=== PATIENT | female | born 1995 | race Caucasian/White ===

== ENCOUNTER 2021-11-26 16:38 | Emergency (ER) | payer OTHER, SELFPAY ==
[2021-11-26 17:00] VITALS: BP 130/76; PULSE 84; RESP 14; TEMP 36.3; O2SAT 98; BMI 22.6
== END 2021-11-26 18:32 | disposition left against medical advice (07) ==
PROVIDERS: Emergency Provider Emergency Medicine; PCP Internal Medicine
CPT/HCPCS: 99281

== ENCOUNTER 2022-04-29 12:49 | Emergency (ER) | payer OTHER, SELFPAY ==
[2022-04-29 12:54] VITALS: BP 163/89; PULSE 79; RESP 15; TEMP 36.3; O2SAT 98; BMI 22.6
--- NOTE | 2022-04-29 12:57 | DI.RAD.S_ITS ---
PROCEDURE: XR CHEST 1V INDICATIONS: chest pain TECHNIQUE: One view of the chest was acquired. COMPARISON: None. FINDINGS: Surgical changes and devices: None. Lungs and pleura: Lungs are clear. No pleural effusions or pneumothorax. Mediastinum: Mediastinal contours appear normal. Heart size is normal. Bones and chest wall: No suspicious bony lesions. Overlying soft tissues appear unremarkable. IMPRESSION: No acute cardiopulmonary disease. Dictated by: Elidia Kingston M.D. on 04/29/2022 at 13:27 Approved by: Elidia Kingston M.D. on 04/29/2022 at 13:28
[2022-04-29 13:24] LABS: COVID19 -Nasal RAPID Negative (Negative)
[2022-04-29 13:26] LABS: Prothrombin Time 11.4 SECONDS (10.1-12.7)
[2022-04-29 13:28] LABS: Add Manual Diff / Slide Review NO; Basophils Absolute Auto 0 /uL (0-100); Basophils Percent Auto 0.5 % (0-2); Eosinophils Absolute Auto 100 /uL (0-450); Eosinophils Percent Auto 0.9 % (2-4); Hematocrit 39.4 % (36-46); Hemoglobin 13.4 g/dL (12.0-16.0); Lymphocytes Absolute Auto 1800 /uL (1100-4500); Lymphocytes Percent Auto 25.1 % (25-40); Mean Corpuscular HGB Conc 34.1 % (30-36); Mean Corpuscular Hemoglobin 31.8 PG (26-34); Mean Corpuscular Volume 93.4 fL (80-100); Monocytes Absolute Auto 400 /uL (0-900); Monocytes Percent Auto 6.1 % (3-14); Neutrophils Absolute Auto 4800 /uL (1500-7000); Neutrophils Percent Auto 67.4 % (50-75); PTT Partial Thromboplastin Tim 29 SECONDS (26-36); Platelet Count 245 X10^3/uL (150-400); Red Blood Cell Count 4.21 X10^6/uL (4.0-5.2); Red Cell Distribution Width 12.7 % (11.6-14.8); White Blood Cell Count 7.1 X10^3/uL (4.5-11.0)
[2022-04-29 13:32] LABS: Alanine Aminotransferase 17 IU/L (<35); Albumin 4.5 g/dL (3.5-5.0); Albumin Globulin Ratio 1.3 (1.0-2.8); Alkaline Phosphatase 43 U/L (38-126); Aspartate Aminotransferase 18 IU/L (14-36); BUN Creatinine Ratio 25.4 (6-22); Bilirubin Total 0.4 mg/dL (0.2-1.3); Blood Urea Nitrogen 16 mg/dL (7-17); Calcium 9.3 mg/dL (8.4-10.2); Carbon Dioxide 29 mmol/L (22-32); Chloride 101 mmol/L (98-107); Creatine Kinase 78 U/L (30-135); Estimated Glomerular Filt Rate > 60 mL/min (>60); Globulin 3.4 g/dL (1.7-4.1); Glucose 98 mg/dL (70-100); HEMOLYSIS 22 (0-50); Lipase 123 U/L (23-300); Potassium 4.1 mmol/L (3.4-5.1); Sodium 137 mmol/L (137-145); Total Protein 7.9 g/dL (6.3-8.2)
[2022-04-29 13:44] LABS: Troponin I < 0.012 ng/mL (0.01-0.034)
== END 2022-04-29 16:24 | disposition left against medical advice (07) ==
PROVIDERS: Emergency Provider Emergency Medicine; PCP Internal Medicine
DX: R07.9 Chest pain, unspecified (principal); R06.02 Shortness of breath; Z20.822 Contact with and (suspected) exposure to COVID-19
CPT/HCPCS: 71045; 80053; 82550; 83690; 83735; 84484; 85025; 85610; 85730; 87635; 93005; 99281; C9803

== ENCOUNTER 2024-01-24 16:50 | Emergency (ER) | payer OTHER, SELFPAY ==
[2024-01-24 16:55] VITALS: BP 139/84; PULSE 69; PULSE 70; RESP 16; TEMP 37; O2SAT 100; BMI 20.9
[2024-01-24 17:00] VITALS: BP 133/90
--- NOTE | 2024-01-24 17:05 | ED_ITS ---
HPI - General Adult General Chief complaint: Abdominal Pain Stated complaint: lower abd px, nausea, headache Time Seen by Provider: 01/24/24 16:51 Source: patient Mode of arrival: Ambulatory History of Present Illness HPI narrative: 28-year-old female. No prior abdominal surgeries. Here for evaluation of approximately 1 week of worsening left-sided abdominal pain. Now having nausea and a headache. She initially thought that maybe it was GI gas. She has been passing gas. She was also been having bowel movements that have been somewhat loose. No urinary symptoms. No vaginal bleeding. She is also having a headache. Related Data Allergies Allergy/AdvReac Type Severity Reaction Status Date / Time No Known Drug Allergies Allergy Verified 01/24/24 16:57 Review of Systems Review of Systems ROS Unobtainable: All systems reviewed & are unremarkable except as noted in HPI and below Patient History Social History Smoking Status: Current every day smoker Smoking Status: Current every day smoker tobacco type: vaping alcohol intake frequency: a few times a week Substance Use Type: does not use Exam Initial Vital Signs Initial Vital Signs: Vital Signs Temperature 98.6 F 01/24/24 16:55 Pulse Rate 70 01/24/24 16:55 Respiratory Rate 16 01/24/24 16:55 Blood Pressure 139/84 01/24/24 16:55 Pulse Oximetry 100 01/24/24 16:55 Oxygen Delivery Method Room Air 01/24/24 16:55 Const General: cooperative, comfortable and No ill appearing HENMT Head: normal to inspection and normocephalic Resp Effort & Inspection: normal respiratory effort Auscultation: clear to auscultation bilaterally Cardio Rate: regular rate Rhythm: regular rhythm GI Inspection: normal to inspection and non-distended Palpation: soft and No firm Back/Spine/Pelvis Back: No CVA tenderness Skin General: no rashes or lesions noted Neuro General: patient alert, patient awake and moves all extremities Extrem General: capillary refill normal Course Orders Ordered: ED Orders 01/24/24 17:00 Complete Blood Count AUTO DIFF Stat Comprehensive Metabolic Panel Stat Lipase Stat Test Serum,Qual Stat 01/24/24 17:09 CT abdomen pelvis w con Stat Discontinued Medications Acetaminophen (Ofirmev) 1,000 mg in 100 mls @ 400 mls/hr IV NOW ONE Stop: 01/24/24 17:23 Last Infusion: 01/24/24 17:38 Dose: Infused Documented By: Admin: 01/24/24 17:22 Dose: 400 mls/hr Documented By: TC Ondansetron HCl (Ondansetron 4 Mg/2 Ml Inj) 4 mg IV NOW ONE Stop: 01/24/24 16:52 Last Admin: 01/24/24 17:07 Dose: 4 mg Documented By: DAVID Vital Signs Vital signs: Vital Signs - 8 hr 01/24/24 16:55 Temperature 98.6 F Pulse Rate 70 Respiratory Rate 16 Blood Pressure 139/84 Pulse Oximetry 100 Oxygen Delivery Method Room Air Medical Decision Making Lab Data Lab results reviewed: Yes I reviewed the patient's lab results. 01/24/24 17:00 01/24/24 17:00 Labs: Lab Results 01/24/24 Range/Units 17:00 WBC 9.3 (4.5-11.0) X10^3/uL RBC 4.15 (4.0-5.2) X10^6/uL Hgb 13.5 (12.0-16.0) g/dL Hct 40.1 (36-46) % MCV 96.7 (80-100) fL MCH 32.5 (26-34) PG MCHC 33.6 (30-36) % RDW 12.8 (11.6-14.8) % Plt Count 242 (150-400) X10^3/uL Neut % (Auto) 67.8 (50-75) % Lymph % (Auto) 23.3 L (25-40) % [place] % (Auto) 8.0 (3-14) % Eos % (Auto) 0.6 L (2-4) % Baso % (Auto) 0.3 (0-2) % Neut # (Auto) 6300 (1282-2944) /uL Lymph # (Auto) 2200 (9620-8471) /uL [place] # (Auto) 800 (0-900) /uL Eos # (Auto) 100 (0-450) /uL Baso # (Auto) 0 (0-100) /uL Sodium 135 L (137-145) mmol/L Potassium 3.6 (3.4-5.1) mmol/L Chloride 104 (98-107) mmol/L Carbon Dioxide 23 (22-32) mmol/L BUN 11 (7-17) mg/dL Creatinine 0.69 (0.52-1.04) mg/dL Estimated GFR > 60 (>60) mL/min BUN/Creatinine Ratio 15.9 (6-22) Glucose 87 (70-100) mg/dL Calcium 9.2 (8.4-10.2) mg/dL Total Bilirubin 0.5 (0.2-1.3) mg/dL AST 18 (14-36) IU/L ALT 14 (<35) IU/L Alkaline Phosphatase 44 (38-126) U/L Total Protein 7.4 (6.3-8.2) g/dL Albumin 4.8 (3.5-5.0) g/dL Globulin 2.6 (1.7-4.1) g/dL Albumin/Globulin Ratio 1.8 (1.0-2.8) Lipase 101 (23-300) U/L Serum , Qual Negative (Negative) Point of Care Testing Test Results Negative Urine Dip Bedside Urine Glucose Negative Bedside Urine Bilirubin - Negative Bedside Urine Ketone +/- 5 Urine Specific [place] 1.025 Bedside Urine Occult Blood - Negative Bedside Urine pH 6.0 Bedside Urine Protein - Negative Bedside Urine Urobilinogen - Negative Bedside Urine Nitrite - Negative Bedside Urine Leukocytes - Negative Esterase Point of care testing: Point of Care Testing Test Results Negative Urine Dip Bedside Urine Glucose Negative Bedside Urine Bilirubin - Negative Bedside Urine Ketone +/- 5 Urine Specific [place] 1.025 Bedside Urine Occult Blood - Negative Bedside Urine pH 6.0 Bedside Urine Protein - Negative Bedside Urine Urobilinogen - Negative Bedside Urine Nitrite - Negative Bedside Urine Leukocytes - Negative Esterase Imaging Data CT scan - abdomen/pelvis: Radiologist's Impression: PROCEDURE: CT ABDOMEN PELVIS W CON INDICATIONS: Left-sided abdominal pain with nausea TECHNIQUE: After the administration of intravenous contrast, axial sections acquired from the lung bases to the pubic symphysis. Coronal and sagittal reformats were performed. For radiation dose reduction, the following was used: automated exposure control, adjustment of mA and/or kV according to patient size. COMPARISON: None. FINDINGS: Image quality: Diagnostic. Lower Chest: No significant findings. ABDOMEN: Liver: No solid mass. Geographic fatty infiltration of the falciform ligament. Gallbladder: No radiopaque gallstones or wall thickening. Biliary ducts: No biliary dilation. Pancreas: No ductal dilation. Spleen: Size is within normal limits. Adrenal Glands: No adrenal nodules. Kidneys and Ureters: No hydronephrosis. No solid mass. No complex renal cystic lesion which requires follow up. Stomach and Bowel: Normal colonic caliber, without significant wall thickening. Peritoneum: No abnormal intraperitoneal fluid. No free air. Ventral Wall: No significant ventral hernia. Abdominal Nodes: No retroperitoneal or mesenteric adenopathy by size criteria. Vessels: Aorta and inferior vena cava are normal in size. PELVIS: Pelvic Organs: Mildly hypervascular uterus with prominent vascular structures in the adnexa with bilateral mildly enlarged uterine veins. Bladder: No bladder wall thickening, accounting for underdistention. Pelvic Nodes: No enlarged lymph nodes. Miscellaneous: No inguinal hernias are seen. Bones: No aggressive osseous abnormality. Mild degenerative changes at L5-S1 IMPRESSION: 1. No acute intra-abdominal findings. 2. Mild prominence the adnexal vascularity, correlate for signs of pelvic congestive syndrome. 3. Focal fatty infiltration of the liver. MDM Narrative Medical decision making narrative: Patient reports improvement of symptoms after IV Tylenol. CT scan is unremarkable. Labs unremarkable. Unsure the exact etiology of the patient's symptoms but does not appear to be infectious process or surgical process. Is afebrile. No chest pain. No indication for surgical consultation or admission to the hospital. We did discuss the possibility of pelvic congestion syndrome although I do not feel that this is what is causing her pain today. She has a follow-up appointment with her primary doctor on 02/03/2024. She was given return precautions. She expressed understanding and agreement with the plan. Discharge Plan Departure Patient Disposition: Home Clinical Impression: Abdominal pain Instructions: DI for Abdominal Pain-Adult Activity Restrictions/Additional Instructions: Your workup today is very reassuring. The CT scan labs unfortunately did not give us a specific cause of your abdominal pain today. I recommend that you keep your follow-up appointment with your primary doctor. There were some findings on the CT scan today that would be indicative of a process called pelvic congestion syndrome. This is not what is causing your abdominal pain today however I would talk with your primary care doctor about it. Return to the emergency department for new or worsening symptoms. Referrals: Eriberto Bauer MD [Primary Care Provider] - Stand Alone Forms: Patient Portal/API
[2024-01-24] MEDS: ONDANSETRON 4 MG/2 ML INJ IV (17:07)
--- NOTE | 2024-01-24 17:09 | DI.CT.S_ITS ---
PROCEDURE: CT ABDOMEN PELVIS W CON INDICATIONS: Left-sided abdominal pain with nausea TECHNIQUE: After the administration of intravenous contrast, axial sections acquired from the lung bases to the pubic symphysis. Coronal and sagittal reformats were performed. For radiation dose reduction, the following was used: automated exposure control, adjustment of mA and/or kV according to patient size. COMPARISON: None. FINDINGS: Image quality: Diagnostic. Lower Chest: No significant findings. ABDOMEN: Liver: No solid mass. Geographic fatty infiltration of the falciform ligament. Gallbladder: No radiopaque gallstones or wall thickening. Biliary ducts: No biliary dilation. Pancreas: No ductal dilation. Spleen: Size is within normal limits. Adrenal Glands: No adrenal nodules. Kidneys and Ureters: No hydronephrosis. No solid mass. No complex renal cystic lesion which requires follow up. Stomach and Bowel: Normal colonic caliber, without significant wall thickening. Peritoneum: No abnormal intraperitoneal fluid. No free air. Ventral Wall: No significant ventral hernia. Abdominal Nodes: No retroperitoneal or mesenteric adenopathy by size criteria. Vessels: Aorta and inferior vena cava are normal in size. PELVIS: Pelvic Organs: Mildly hypervascular uterus with prominent vascular structures in the adnexa with bilateral mildly enlarged uterine veins. Bladder: No bladder wall thickening, accounting for underdistention. Pelvic Nodes: No enlarged lymph nodes. Miscellaneous: No inguinal hernias are seen. Bones: No aggressive osseous abnormality. Mild degenerative changes at L5-S1 IMPRESSION: 1. No acute intra-abdominal findings. 2. Mild prominence the adnexal vascularity, correlate for signs of pelvic congestive syndrome. 3. Focal fatty infiltration of the liver. Dictated by: Govind Hawley M.D. on 01/24/2024 at 16:36 Approved by: Govind Hawley M.D. on 01/24/2024 at 16:43
[2024-01-24 17:17] LABS: Alanine Aminotransferase 14 IU/L (<35); Albumin 4.8 g/dL (3.5-5.0); Albumin Globulin Ratio 1.8 (1.0-2.8); Alkaline Phosphatase 44 U/L (38-126); Aspartate Aminotransferase 18 IU/L (14-36); BUN Creatinine Ratio 15.9 (6-22); Bilirubin Total 0.5 mg/dL (0.2-1.3); Blood Urea Nitrogen 11 mg/dL (7-17); Calcium 9.2 mg/dL (8.4-10.2); Carbon Dioxide 23 mmol/L (22-32); Chloride 104 mmol/L (98-107); Estimated Glomerular Filt Rate > 60 mL/min (>60); Globulin 2.6 g/dL (1.7-4.1); Glucose 87 mg/dL (70-100); HEMOLYSIS < 15 (0-50); Lipase 101 U/L (23-300); Potassium 3.6 mmol/L (3.4-5.1); Sodium 135 mmol/L (137-145); Total Protein 7.4 g/dL (6.3-8.2)
[2024-01-24 17:18] LABS: Add Manual Diff / Slide Review NO; Basophils Absolute Auto 0 /uL (0-100); Basophils Percent Auto 0.3 % (0-2); Eosinophils Absolute Auto 100 /uL (0-450); Eosinophils Percent Auto 0.6 % (2-4); Hematocrit 40.1 % (36-46); Hemoglobin 13.5 g/dL (12.0-16.0); Lymphocytes Absolute Auto 2200 /uL (1100-4500); Lymphocytes Percent Auto 23.3 % (25-40); Mean Corpuscular HGB Conc 33.6 % (30-36); Mean Corpuscular Hemoglobin 32.5 PG (26-34); Mean Corpuscular Volume 96.7 fL (80-100); Monocytes Absolute Auto 800 /uL (0-900); Neutrophils Absolute Auto 6300 /uL (1500-7000); Neutrophils Percent Auto 67.8 % (50-75); Platelet Count 242 X10^3/uL (150-400); Red Blood Cell Count 4.15 X10^6/uL (4.0-5.2); Red Cell Distribution Width 12.8 % (11.6-14.8); White Blood Cell Count 9.3 X10^3/uL (4.5-11.0)
[2024-01-24] MEDS: ACETAMINOPHEN IV 1,000 MG/100 ML VIAL 400 MG IV (17:22)
[2024-01-24 17:27] LABS: Pregnancy Test Serum,Qual Negative (Negative)
== END 2024-01-24 18:21 | disposition home or self-care (01) ==
PROVIDERS: Emergency Provider Emergency Medicine; PCP Internal Medicine
DX: R10.9 Unspecified abdominal pain (principal); R51.9 Headache, unspecified
CPT/HCPCS: 36415; 74177; 80053; 81003; 81025; 83690; 84703; 85025; 96365; 96375; 99284; J0134; J2405; Q9967

== ENCOUNTER → 2024-02-19 10:03 | Outpatient (CLI) | payer OTHER, SELFPAY ==
--- NOTE | 2024-02-19 10:04 | DI.RAD.S_ITS ---
PROCEDURE: XR HAND RT MIN 3V INDICATIONS: Right-hand weakness TECHNIQUE: 3 views of the hand(s) acquired. COMPARISON: [facility], CR, XR WRIST RT MIN 3V, 02/19/2024, 9:17. FINDINGS: Bones: No fractures or dislocations. Carpal bones are normally aligned. No suspicious bony lesions. Soft tissues: No suspicious soft tissue calcifications. IMPRESSION: Normal hand plain films. Dictated by: Daniel Howard M.D. on 02/19/2024 at 18:07 Approved by: Daniel Howard M.D. on 02/19/2024 at 18:07
--- NOTE | 2024-02-19 10:04 | DI.RAD.S_ITS ---
PROCEDURE: XR WRIST RT MIN 3V INDICATIONS: Right-hand weakness TECHNIQUE: 3 views of the wrist were acquired. COMPARISON: [facility], , XR HAND RT MIN 3V, 02/19/2024, 9:15. FINDINGS: Bones: No fractures or dislocations. No suspicious bony lesions. Soft tissues: No suspicious soft tissue calcifications. IMPRESSION: Wrist plain film study within normal limits. If it would be helpful for clinical management decision making, please consider a dedicated, scheduled wrist MRI for further evaluation (assuming that there is no contraindication). If there is strong clinical concern for a ligamentous abnormality, this should be performed according to the MR arthrogram protocol. Dictated by: Daniel Howard M.D. on 02/19/2024 at 18:07 Approved by: Daniel Howard M.D. on 02/19/2024 at 18:08
== END ==
PROVIDERS: Referring Provider Nurse Practitioner Family; Visit Provider Nurse Practitioner Family
DX: R29.898 Other symptoms and signs involving the musculoskeletal system (principal)
CPT/HCPCS: 73110; 73130

== ENCOUNTER 2024-02-19 17:15 | Emergency (ER) | payer OTHER, SELFPAY ==
[2024-02-19 17:22] VITALS: BP 135/60; PULSE 76; RESP 16; TEMP 35.9; O2SAT 100; BMI 20.9
--- NOTE | 2024-02-19 17:59 | ED.HEATRA ---
HPI - Head Injury <Rupa Leiva PA-C - Last Filed: 02/19/24 18:51> General Chief complaint: Head Injury Stated complaint: injured by ladder Time Seen by Provider: 02/19/24 17:59 Source: patient Mode of arrival: Ambulatory History of Present Illness HPI Narrative: Patient is a very pleasant 28-year-old female that presents to the emergency room department with her best friend, with complaints of nasal trauma associated with having a large 11 ft ladder hit her in the face. Patient was outside, the wind unfortunately blew ladder that struck her in the face. No loss of consciousness. However it did damage and pull on a nose ring that she had in the right nostril. Which caused some pain and discomfort and bleeding. The nasal ring was in place, however the patient was able to get the nasal ring out prior to me seeing her. Currently no nasal bleeding, or nosebleed or epistaxis at this point in time. Patient concerned about possible nasal bone fracture. Also concerned about possible concussion. No loss of consciousness. No treatment prior to being seen here in the emergency room except ice to the nose. No other further complaints. Related Data Previous Rx's Medication Instructions Recorded prednisone 20 mg tablet 40 mg (2 x 20 mg) PO DAILY #6 tabs 02/19/24 Allergies Allergy/AdvReac Type Severity Reaction Status Date / Time cyclobenzaprine Allergy Severe Anaphylaxis Verified 02/19/24 17:25 [From Flexeril] tramadol Allergy Severe Anaphylaxis Verified 02/19/24 17:25 corn AdvReac Intermediate gi upset Verified 02/19/24 17:25 peanut AdvReac Intermediate gi upset Verified 02/19/24 17:25 shrimp AdvReac Intermediate gi upset Verified 02/19/24 17:25 soy AdvReac Intermediate gi upset Verified 02/19/24 17:25 walnut AdvReac Intermediate gi upset Verified 02/19/24 17:25 wheat AdvReac Intermediate gi upset Verified 02/19/24 17:25 Review of Systems <ADELE Tovar Last Filed: 02/19/24 18:51> Review of Systems Narrative: Negative except as above ENT Comments: Nasal injury, nose ring injury. Concerns for possible nasal bone fracture. Patient History <Rupa Leiva PA-C - Last Filed: 02/19/24 18:51> Social History Smoking Status: Current every day smoker Smoking Status: Current every day smoker tobacco type: vaping alcohol intake frequency: a few times a week Substance Use Type: does not use Exam <Rupa Leiva PA-C - Last Filed: 02/19/24 18:51> Initial Vital Signs Initial Vital Signs: Vital Signs Temperature 96.6 F L 02/19/24 17:22 Pulse Rate 76 02/19/24 17:22 Respiratory Rate 16 02/19/24 17:22 Blood Pressure 135/60 02/19/24 17:22 Pulse Oximetry 100 02/19/24 17:22 Oxygen Delivery Method Room Air 02/19/24 17:22 Reviewed Const General: cooperative, healthy appearing, comfortable, well developed, well groomed, No acute distress, No in distress and No anxious HENMT Nose: No external nose normal, nares normal, nasal mucous membranes and turbinates normal, septum normal, No epistaxis and external nose abnormal (Patient has an area on the right lateral nose where she had a nose ring.) HENMT Other: She has been able to remove the nose ring, she has a small laceration associated with a nose ring, 0.3 mm in length. Currently not bleeding. Eyes General: Yes appearance normal, both eyes and all related structures Pupils: PERRL EOM: EOM intact bilaterally Skin Other: 0.3 mm skin tear small laceration to the lateral aspect of the right nostril where the ladder hit her nose ring. The patient was able to remove the nose ring here in the emergency department. Currently no bleeding. Neuro General: patient alert, patient awake, patient oriented x3, oriented and gait normal Cranial Nerves: CN's II-XI intact bilaterally and PERRL Cognition: normal cognition Speech: speech normal Gait: normal gait Extrem Other: Range of motion, strength, pulses, cap refill preserved in the upper and lower extremities Psych Other: Appearance, mental status, speech, movement, mood, affect, attitude, thought process, thought content, judgment are completely intact. <Karuna Whipple DO - Last Filed: 02/20/24 09:29> Initial Vital Signs Initial Vital Signs: Vital Signs Temperature 96.6 F L 02/19/24 17:22 Pulse Rate 76 02/19/24 17:22 Respiratory Rate 16 02/19/24 17:22 Blood Pressure 135/60 02/19/24 17:22 Pulse Oximetry 100 02/19/24 17:22 Oxygen Delivery Method Room Air 02/19/24 17:22 Scores <Rupa Leiva PA-C - Last Filed: 02/19/24 18:51> GCS Citation: 15 Course <Rupa Leiva PA-C - Last Filed: 02/19/24 18:51> Vital Signs Vital signs: Vital Signs - 8 hr 02/19/24 17:22 Temperature 96.6 F L Pulse Rate 76 Respiratory Rate 16 Blood Pressure 135/60 Pulse Oximetry 100 Oxygen Delivery Method Room Air <Karuna Whipple DO - Last Filed: 02/20/24 09:29> Vital Signs Vital signs: Vital Signs - 8 hr 02/19/24 17:22 Temperature 96.6 F L Pulse Rate 76 Respiratory Rate 16 Blood Pressure 135/60 Pulse Oximetry 100 Oxygen Delivery Method Room Air MDM - Head Injury <Rupa Leiva PA-C - Last Filed: 02/19/24 18:51> MDM Narrative Medical decision making narrative: Pleasant 28-year-old female presents to the emergency department after a ladder struck her in the nose, unfortunately ripping the nose ring that she had in the right nares. Did not completely ripped it out the patient was able to remove it here in the emergency department but did pull it and cause a superficial 0.3 mm laceration associated with pulling on the nasal ring. Evaluation of the nose shows that there is no septal hematoma, there was no fracture or bone through the septum. She currently does not have epistaxis. The nose ring has been removed by the patient. Currently no bleeding. Superficial laceration that does not need to be repaired, the patient does not want skin glue she wants the superficial laceration to heal on its own She asked about nasal fracture, exam does not show or indicative of a nasal fracture. There was no obvious deformity, and her nasal exam is negative for any acute findings We discussed a concussion. Signs and symptoms of a concussion. Supportive therapy education, ED precautions. Patient discharged with [id number] supportive therapy ice, Tylenol, ibuprofen for her symptoms. Concussion education Differential diagnosis; facial trauma nasal contusion, superficial laceration to the right nares. Possible concussion. Discharge Plan Departure Patient Disposition: Home Clinical Impression: Contusion of nose, initial encounter Activity Restrictions/Additional Instructions: I would cleaned the area on the right side of her nose that has a nose ring in with either some hydrogen peroxide or a little bit of alcohol to keep it clean Apply take anywhere from 7-10 days for the outside to heal Probably take at least probably 2-3 weeks for the tissue inside to heal If your wanting to repair set area I would probably wait probably 1-2 months before I repairs that area Signs and symptoms of concussion headache, dizziness, weakness, nausea, just feeling off for awhile unstable this is different from person to person I would go home and rest tonight I would not go home and drink alcohol, no heavy cell phone usage iPad usage TV or loud music I would go home and just rest Ice to the face or heating pad, essential oils Lavender those type of things that are calming Chamomile tea Tylenol ibuprofen as needed Ice to the face and bridge of the nose Your nasal exam does not show any signs or symptoms of a deviated septum low concerns for nasal fracture Follow up with your primary care doctor Return to the emergency department as needed Prescriptions: No Action prednisone 20 mg tablet 40 mg PO DAILY Qty: 6 0RF Stand Alone Forms: Patient Portal/API ED Sign-out <Karuna Whipple DO - Last Filed: 02/20/24 09:29> Cosign ED Attending Donnaature Attestation: X-rays of right wrist and hand have been reviewed by myself and are negative. Radiology reports in computer. I was available for consultation.
[2024-02-19 18:10] VITALS: RESP 17
== END 2024-02-19 18:10 | disposition home or self-care (01) ==
PROVIDERS: Emergency Provider Physician Assistant
DX: S00.33XA Contusion of nose, initial encounter (principal); W20.8XXA Other cause of strike by thrown, projected or falling object, initial encounter
CPT/HCPCS: 73110; 73130; 99281

== ENCOUNTER 2025-01-10 11:07 | Emergency (ER) | payer OTHER, SELFPAY ==
[2025-01-10 11:12] VITALS: BP 130/81; PULSE 89; RESP 16; TEMP 36.4; O2SAT 99; BMI 21.7
--- NOTE | 2025-01-10 11:28 | ED_ITS ---
HPI - Headache General Chief Complaint: Headache Stated Complaint: Sharp pain on back of head, Dizzy x 3 days Time Seen by Provider: 01/10/25 11:26 Mode of arrival: Family Vehicle History of Present Illness HPI Narrative: Patient is a 29-year-old female no significant past medical history comes into the ED from home for evaluation of headache lightheaded dizziness nausea since Thursday morning after she had sexual intercourse with her . She states that she has taken ibuprofen without any relief, denies any trauma or falls not on blood thinners. At time of evaluation patient is speaking full sentences protecting airway no voice changes no stridor no trismus. NIH of 0 Related Data Previous Rx's ?Medication ?Instructions ?Recorded prednisone 20 mg tablet 40 mg (2 x 20 mg) PO DAILY # 6 tabs 02/19/24 gdsracxwtl-ryegyolsnwbzo-dtmnvlvx 1 cap PO Q8H PRN simona n 5 days #15 01/10/25 50 mg-300 mg-40 mg capsule caps (Fioricet) ondansetron 4 mg disintegrating 4 mg PO Q8H PRN nausea and 01/10/25 tablet vomiting 1 week #21 tabs Allergies Allergy/AdvReac Type Severity Reaction Status Date / Time cyclobenzaprine (From Allergy Severe Anaphylaxis Verified 01/10/25 11:15 Flexeril) tramadol Allergy Severe Anaphylaxis Verified 01/10/25 11:15 corn AdvReac Intermediate gi upset Verified 01/10/25 11:15 peanut AdvReac Intermediate gi upset Verified 01/10/25 11:15 shrimp AdvReac Intermediate gi upset Verified 01/10/25 11:15 soy AdvReac Intermediate gi upset Verified 01/10/25 11:15 walnut AdvReac Intermediate gi upset Verified 01/10/25 11:15 wheat AdvReac Intermediate gi upset Verified 01/10/25 11:15 Review of Systems Review of Systems Narrative: General: Denies fever, chills, weight loss HEENT: Positive headache, denies eye drainage, eye irritation, head trauma, sore throat, voice change Cardiovascular: Denies any chest pain, palpitations, tachycardia Respiratory: Denies any shortness of breath, cough, wheeze, stridor GI/: Denies any abdominal pain, nausea, vomiting, diarrhea, bright red blood per rectum, melanotic stools, urinary frequency, urinary retention, dysuria, hematuria MSK: Denies any joint pain, muscle pains, swelling Skin: Denies any rashes, lesions, discoloration Neuro: Positive headache, lightheadedness, dizziness, denies fainting, weakness Psych: Denies SI/HI Patient History Social History Smoking Status: Current every day smoker Smoking Status: Current every day smoker tobacco type: vaping alcohol intake frequency: a few times a week Alcohol type: beer and wine Exam Narrative Exam Narrative: General: Cooperative, well-developed, not in acute distress HEENT: Normocephalic, atraumatic, PERRLA, normal sclera, eyelids normal Neck: Active full range of motion, atraumatic Chest: Normal to inspection, negative crepitus, no overlying erythema ecchymosis Respiratory: Normal respiratory effort, not in acute respiratory distress, clear to auscultation bilaterally negative cough, wheeze, tachypnea, rhonchi, rales Cardiology: Regular rate rhythm negative gallop, murmur, rubs GI/: No tenderness to palpation, soft, non rigid, normal to inspection, exam deferred MSK: Full active range of motion in all 4 extremities, atraumatic, no tenderness to palpation of any bony prominences Skin: No rashes or lesions noted Neuro: NIH of 0, no focal deficits Alert awake oriented x3, moves all 4 extremities spontaneously, cranial nerves intact, able to answer all questions appropriately follows commands appropriately Psych: Cooperative, negative suicidal or homicidal ideations Initial Vital Signs Initial Vital Signs: Vital Signs Temperature 97.6 F 01/10/25 11:12 Pulse Rate 89 01/10/25 11:12 Respiratory Rate 16 01/10/25 11:12 Blood Pressure 130/81 01/10/25 11:12 Pulse Oximetry 99 01/10/25 11:12 Oxygen Delivery Method Room Air 01/10/25 11:12 Course Orders Ordered: ED Orders 01/10/25 11:36 CT head/brain wo con Stat 01/10/25 11:37 CT angio head and neck Stat EKG-12 Lead Stat 01/10/25 11:45 Complete Blood Count AUTO DIFF Stat Comprehensive Metabolic Panel Stat MAG [Magnesium] Stat PTT Partial Thromboplastin Alan Stat Test Serum,Qual Stat Prothrombin Time INR Stat Discontinued Medications Dexamethasone (Dexamethasone 10 Mg/Ml Vial) 10 mg IV NOW ONE Stop: 01/10/25 11:37 Last Admin: 01/10/25 12:17 Dose: 10 mg Documented By: LISETTE Diphenhydramine HCl (Diphenhydramine 50 Mg/Ml Vial) 25 mg IV NOW ONE Stop: 01/10/25 11:37 Last Admin: 01/10/25 12:18 Dose: 25 mg Documented By: LISETTE Sodium Chloride (Normal Saline 0.9%) 1,000 mls @ 1,000 mls/hr IV BOLUS ONE Stop: 01/10/25 12:35 Last Admin: 01/10/25 12:18 Dose: 1,000 mls/hr Documented By: LISETTE Prochlorperazine (Prochlorperazine 10 Mg/2 Ml Vial) 10 mg IV NOW ONE Stop: 01/10/25 11:37 Last Admin: 01/10/25 12:18 Dose: 10 mg Documented By: LISETTE Vital Signs Vital signs: Vital Signs - 8 hr 01/10/25 11:12 Temperature 97.6 F Pulse Rate 89 Respiratory Rate 16 Blood Pressure 130/81 Pulse Oximetry 99 Oxygen Delivery Method Room Air MDM - Headache Lab Data 01/10/25 11:45 01/10/25 11:45 Labs: Lab Results 01/10/25 Range/Units 11:45 WBC 7.1 (4.5-11.0) X10^3/uL RBC 4.22 (4.0-5.2) X10^6/uL Hgb 13.8 (12.0-16.0) g/dL Hct 40.8 (36-46) % MCV 96.8 (80-100) fL MCH 32.7 (26-34) PG MCHC 33.8 (30-36) % RDW 14.0 (11.6-14.8) % Plt Count 288 (150-400) X10^3/uL Neut % (Auto) 60.9 (50-75) % Lymph % (Auto) 28.1 (25-40) % Gove % (Auto) 8.8 (3-14) % Eos % (Auto) 1.5 L (2-4) % Baso % (Auto) 0.7 (0-2) % Neut # (Auto) 4300 (8628-5718) /uL Lymph # (Auto) 2000 (5368-4352) /uL Gove # (Auto) 600 (0-900) /uL Eos # (Auto) 100 (0-450) /uL Baso # (Auto) 0 (0-100) /uL PT 11.0 (9.4-12.5) SECONDS INR 1.0 (0.9-1.3) APTT 28 (25.1-36.5) SECONDS Sodium 140 (137-145) mmol/L Potassium 3.9 (3.4-5.1) mmol/L Chloride 103 (98-107) mmol/L Carbon Dioxide 24 (22-32) mmol/L BUN 10 (7-17) mg/dL Creatinine 0.86 (0.52-1.04) mg/dL Estimated GFR > 60 (>60) mL/min BUN/Creatinine Ratio 11.6 (6-22) Glucose 94 (70-99) mg/dL Calcium 9.4 (8.4-10.2) mg/dL Magnesium 1.9 (1.6-2.3) mg/dL Total Bilirubin 0.5 (0.2-1.3) mg/dL AST 21 (14-36) IU/L ALT 16 (<35) IU/L Alkaline Phosphatase 41 (38-126) U/L Total Protein 8.1 (6.3-8.2) g/dL Albumin 5.1 H (3.5-5.0) g/dL Globulin 3.0 (1.7-4.1) g/dL Albumin/Globulin Ratio 1.7 (1.0-2.8) Serum , Qual Negative (Negative) Point of Care Testing Test Results Negative Urine Dip Bedside Urine Glucose Negative Bedside Urine Bilirubin - Negative Bedside Urine Ketone - Negative Urine Specific [place] 1.025 Bedside Urine Occult Blood - Negative Bedside Urine pH 6.0 Bedside Urine Protein - Negative Bedside Urine Urobilinogen - Negative Bedside Urine Nitrite - Negative Bedside Urine Leukocytes - Negative Esterase ECG Data Interpretation: EKG interpreted ED physician sinus 95 beats per minute QTC 477, right axis deviation, QRS ND interval within normal limits no STEMI MDM Narrative Medical decision making narrative: Patient is a 29-year-old female without any significant past medical history comes into the ED from home for evaluation of headache, she states that this happened and Thursday morning after she had sexual intercourse she has, she states it is was during sexual intercourse not after any organisms no trauma no falls not on any blood thinners, she states that she has been having intermittent persistent headache lightheaded dizziness but no actual syncopal episodes. She denies any other symptoms at this time. Patient had lab work imaging performed here. Patient's lab work is unremarkable, patient's CT head CTA angio head and neck were negative, patient had complete resolution of her symptoms after administration of migraine cocktail here, however given the fact that patient presented with possible thunderclap/worse headache of life in the setting of exertion I did discuss risks benefits of obtaining a lumbar puncture to completely rule out subarachnoid hemorrhage. She states that she has history of low back pain and bad experiences with epidurals in the past. She states that she does not want to have of the lumbar puncture. She states that given the fact that she feels completely back to baseline we will just follow up with primary care in an outpatient setting. Patient was given strict return precautions she verbalized understanding of this and agrees to being discharged home with outpatient follow up Discharge Plan Departure Patient Disposition: Home Clinical Impression: Headache Activity Restrictions/Additional Instructions: Please follow up with the primary care doctor as needed Please read the discharge instructions sheet carefully and bring all papers to all doctor follow-up visits, as it may contain information that your doctor may want to see. Disease processes change and evolve, if your symptoms worsen or if you develop any new symptoms that are concerning to you please return for evaluation. Your evaluation today does not show any evidence of any life- threatening/serious illnesses requiring admission to the hospital or surgery. Please follow-up with your doctor for re-evaluation in approximately 1 day. Seek immediate medical attention for any worrisome symptoms. *If you do not have a primary care provider please contact the [facility] Resource line at [phone]. They will ask some questions about your medical history and help get you set up with a doctor in the community. Prescriptions: New ondansetron 4 mg tablet,disintegrating 4 mg PO Q8H PRN (Reason: nausea and vomiting) 7 Days Qty: 21 0RF sutqwpzssf-ltvptmuucvwkb-xnkx [Fioricet] 50-300-40 mg capsule 1 cap PO Q8H PRN (Reason: pain) 5 Days Qty: 15 0RF No Action prednisone 20 mg tablet 40 mg PO DAILY Qty: 6 0RF Stand Alone Forms: Patient Portal/API
--- NOTE | 2025-01-10 11:36 | DI.CT.S_ITS ---
PROCEDURE: CT HEAD/BRAIN WO CON INDICATIONS: Headache lightheaded dizziness after sexual intercourse TECHNIQUE: Noncontrast 4.5 mm thick angled axial sections acquired from the foramen magnum to the vertex, with coronal and sagittal reformats. For radiation dose reduction, the following was used: automated exposure control, adjustment of mA and/or kV according to patient size. COMPARISON: None. FINDINGS: Image quality: Diagnostic. CSF spaces: Basal cisterns are patent. No extra-axial fluid collections. Ventricles are normal in size and shape. Brain: No midline shift. No intracranial mass effect or hemorrhage. Velazquez- white matter interface is normal. Skull and face: Calvarium and visualized facial bones are intact, without suspicious lesions. Sinuses: Visualized sinuses and mastoids are clear. IMPRESSION: No acute intracranial pathology. Dictated by: Olman Clemons M.D. on 01/10/2025 at 12:14 Approved by: Olman Clemons M.D. on 01/10/2025 at 12:14
--- NOTE | 2025-01-10 11:37 | DI.CT.S_ITS ---
PROCEDURE: CT ANGIO HEAD AND NECK INDICATIONS: Headache, lightheaded dizziness after sexual intercourse TECHNIQUE: After the administration of intravenous contrast, 1 mm thick sections acquired from the aortic arch through the [place]. 3-dimensional mbxokny-hfnycrqeh-pwrfyrythw (MIP) and/or volume rendering reformats were acquired of the central intracranial vasculature and neck separately. For radiation dose reduction, the following was used: automated exposure control, adjustment of mA and/or kV according to patient size. COMPARISON: [facility], CT, CT HEAD/BRAIN WO [facility], 01/10/2025, 11:50. FINDINGS: Image quality: Diagnostic. Cerebral CT Angiogram: Internal carotid arteries: No acute findings. Intracranial ICA are patent with no significant stenosis. No occlusion. No aneurysm. Anterior cerebral arteries: Unremarkable. No significant stenosis. No occlusion. No aneurysm. Middle cerebral arteries: Unremarkable. No significant stenosis. No occlusion. No aneurysm. Posterior cerebral arteries: Unremarkable. No significant stenosis. No occlusion. No aneurysm. Basilar artery: Unremarkable. No significant stenosis. No occlusion. No aneurysm. Vertebral arteries: Unremarkable as visualized. Dural venous sinuses: Unremarkable given phase of enhancement. Other: Arterial phase appearance of the brain parenchyma is unremarkable. Neck CT Angiogram: Internal carotid arteries: Unremarkable. No significant stenosis. No dissection or occlusion. Common carotid arteries: Unremarkable. No significant stenosis. No dissection or occlusion. External carotid arteries: Unremarkable. No occlusion. Vertebral arteries: Unremarkable. No significant stenosis. No dissection or occlusion. Aortic Arch and Mediastinum: Partially visualized aortic arch unremarkable without evidence of aneurysm. Origins of the great vessels unremarkable. Other: Arterial phase soft tissues of the neck and chest are unremarkable. IMPRESSION: No significant intracranial arterial abnormality is seen. No intracranial aneurysm. No significant abnormality is seen within the arteries of the neck. Any quantitative measurements of stenosis were performed using NASCET criteria. Approved by: Bayron Burr M.D. on 01/10/2025 at 12:26
[2025-01-10 11:55] LABS: Add Manual Diff / Slide Review NO; Hematocrit 40.8 % (36-46); Hemoglobin 13.8 g/dL (12.0-16.0); Lymphocytes Absolute Auto 2000 /uL (1100-4500); Mean Corpuscular HGB Conc 33.8 % (30-36); Mean Corpuscular Hemoglobin 32.7 PG (26-34); Mean Corpuscular Volume 96.8 fL (80-100); Platelet Count 288 X10^3/uL (150-400)
[2025-01-10 12:02] LABS: INR 1.0 (0.9-1.3); Prothrombin Time 11.0 SECONDS (9.4-12.5)
[2025-01-10 12:04] LABS: PTT Partial Thromboplastin Tim 28 SECONDS (25.1-36.5)
[2025-01-10 12:06] LABS: Pregnancy Test Serum,Qual Negative (Negative)
[2025-01-10 12:07] LABS: Alanine Aminotransferase 16 IU/L (<35); Albumin 5.1 g/dL (3.5-5.0); Albumin Globulin Ratio 1.7 (1.0-2.8); Alkaline Phosphatase 41 U/L (38-126); Blood Urea Nitrogen 10 mg/dL (7-17); Calcium 9.4 mg/dL (8.4-10.2); Carbon Dioxide 24 mmol/L (22-32); Chloride 103 mmol/L (98-107); Estimated Glomerular Filt Rate > 60 mL/min (>60); Globulin 3.0 g/dL (1.7-4.1); Glucose 94 mg/dL (70-99); HEMOLYSIS < 15 (0-50); Magnesium 1.9 mg/dL (1.6-2.3); Potassium 3.9 mmol/L (3.4-5.1); Sodium 140 mmol/L (137-145); Total Protein 8.1 g/dL (6.3-8.2)
--- NOTE | 2025-01-10 12:08 | EKG_ITS ---
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
[2025-01-10] MEDS: diphenhydrAMINE 50 MG/ML VIAL 25 MG IV (12:18)
[2025-01-10] MEDS: PROCHLORPERAZINE 10 MG/2 ML VIAL IV (12:18)
[2025-01-10] MEDS: SODIUM CHLORIDE 0.9% 1,000 ML 1000 ML IV (12:18)
[2025-01-10 12:57] VITALS: BP 108/68; PULSE 67; RESP 15; O2SAT 100
== END 2025-01-10 12:58 | disposition home or self-care (01) ==
PROVIDERS: Emergency Provider Student in an Organized Health Care Education/Training Program
DX: R51.9 Headache, unspecified (principal); R42 Dizziness and giddiness
CPT/HCPCS: 36415; 70450; 70496; 70498; 80053; 81003; 81025; 83735; 84703; 85025; 85610; 85730; 93005; 99284; J0780; J1100; J1200; Q9967

== ENCOUNTER 2025-03-20 14:18 | Emergency (ER) | payer OTHER, SELFPAY ==
--- NOTE | 2025-03-20 14:24 | EKG_ITS ---
[address] [address] [address] [address] Test Date: 2025-03-20 Pat Name: Ying Nunes Department: Room: Gender: Female Personal Care Aid: ALICIA : 1995 Requested By: Order Number: [id number] Reading MD: Ozzie Munoz MD Measurements Intervals [place] Rate: 80 P: 74 [place]: 132 QRS: 80 QRSD: 82 T: 57 QT: 380 QTc: 438 Interpretive Statements Normal sinus rhythm with sinus arrhythmia Nonspecific ST abnormality Electronically Signed On 03-21-2025 6:46:30 PST by Ozzie Munoz MD
[2025-03-20 14:28] VITALS: BMI 22.2
[2025-03-20 14:38] VITALS: BP 130/78; PULSE 67; RESP 20; TEMP 37.2; O2SAT 99
--- NOTE | 2025-03-20 15:13 | DI.RAD.S_ITS ---
PROCEDURE: XR CHEST 1V INDICATIONS: chest pain TECHNIQUE: One view of the chest was acquired. COMPARISON: [facility], CR, XR CHEST 1V, 04/29/2022, 13:18. FINDINGS: Surgical changes and devices: Multiple EKG leads overlie the thorax. Lungs and pleura: Lungs are clear. No pleural effusions or pneumothorax. Mediastinum: Mediastinal contours appear normal. Heart size is normal. Bones and chest wall: No suspicious bony lesions. Overlying soft tissues appear unremarkable. IMPRESSION: No acute cardiopulmonary abnormality is seen. Dictated by: Allison Davenport M.D. on 03/20/2025 at 15:37 Approved by: Allison Davenport M.D. on 03/20/2025 at 15:40
[2025-03-20 15:19] LABS: Add Manual Diff / Slide Review NO; Hematocrit 34.3 % (36-46); Hemoglobin 11.6 g/dL (12.0-16.0); Lymphocytes Absolute Auto 1800 /uL (1100-4500); Mean Corpuscular HGB Conc 33.8 % (30-36); Mean Corpuscular Hemoglobin 32.3 PG (26-34); Mean Corpuscular Volume 95.8 fL (80-100); Platelet Count 283 X10^3/uL (150-400)
[2025-03-20 15:26] LABS: Alanine Aminotransferase 14 IU/L (<35); Albumin 4.1 g/dL (3.5-5.0); Albumin Globulin Ratio 1.6 (1.0-2.8); Alkaline Phosphatase 36 U/L (38-126); Blood Urea Nitrogen 12 mg/dL (7-17); Calcium 8.3 mg/dL (8.4-10.2); Carbon Dioxide 22 mmol/L (22-32); Chloride 111 mmol/L (98-107); Estimated Glomerular Filt Rate > 60 mL/min (>60); Globulin 2.6 g/dL (1.7-4.1); Glucose 100 mg/dL (70-99); HEMOLYSIS < 15 (0-50); Lipase 118 U/L (23-300); Magnesium 1.8 mg/dL (1.6-2.3); Potassium 3.4 mmol/L (3.4-5.1); Sodium 139 mmol/L (137-145); Total Protein 6.7 g/dL (6.3-8.2)
[2025-03-20 15:38] LABS: NT-proBNP (BNP-Adult 18+) 46 pg/mL (<125); Troponin I < 0.012 ng/mL (0.01-0.034)
[2025-03-20 15:43] LABS: Appearance Urine UA CLEAR; Bilirubin Urine UA NEGATIVE (NEGATIVE); Color Urine UA YELLOW; Glucose Urine UA NEGATIVE (Negative); Ketones Urine UA NEGATIVE (NEGATIVE); Leukocyte Esterase Urine UA NEGATIVE (NEGATIVE); Nitrite Urine UA NEGATIVE (Negative); Occult Blood Urine UA 1+ (Negative); Protein Urine UA NEGATIVE (Negative); Specific Gravity Urine UA 1.010 (1.000-1.035); Urobilinogen Urine UA 0.2 E.U./dL (0.2)
[2025-03-20 15:50] LABS: Culture Indicated Urine Cult Not Indicated; pH Urine UA 7.5 (4.5-8.0)
--- NOTE | 2025-03-20 15:59 | PC.NURSE ---
Offered patient ordered meds, declined medications stating it's not reflux. Provider made aware.
[2025-03-20 17:22] VITALS: BP 132/70; PULSE 70; RESP 16; O2SAT 99
--- NOTE | 2025-03-20 17:37 | ED_ITS ---
HPI - Chest Pain <Shaniqua Carter PA-C - Last Filed: 03/20/25 17:47> General Chief Complaint: Chest Pain Stated Complaint: Chest pain w/inspiration increase stress Time Seen by Provider: 03/20/25 14:36 Source: patient and EMS Mode of arrival: EMS History of Present Illness HPI narrative: 29-year-old female with no significant past medical history presents to the ED with 1 day of substernal chest pain, lightheadedness. Patient states that her symptoms started acutely this morning, she feels tightness in her chest and lightheadedness. Patient endorses nausea. Denies fever, chills, vomiting, abdominal pain, dysuria, syncope. Patient just started her menstrual period today. Patient states that she is very stressed about an upcoming move to [place] at the end of April, and that her wants to do it by themselves. Patient is not on any blood thinners. Patient is not on contraception. No history of DVT/PE. Patient does vape and has vaped for several years. Patient endorses consuming 2-3 alcoholic drinks daily. No recreational drug use. Related Data Previous Rx's ?Medication ?Instructions ?Recorded prednisone 20 mg tablet 40 mg (2 x 20 mg) PO DAILY # 6 tabs 02/19/24 Allergies Allergy/AdvReac Type Severity Reaction Status Date / Time cyclobenzaprine (From Allergy Severe Anaphylaxis Verified 03/20/25 14:28 Flexeril) tramadol Allergy Severe Anaphylaxis Verified 03/20/25 14:28 corn AdvReac Intermediate gi upset Verified 03/20/25 14:28 peanut AdvReac Intermediate gi upset Verified 03/20/25 14:28 shrimp AdvReac Intermediate gi upset Verified 03/20/25 14:28 soy AdvReac Intermediate gi upset Verified 03/20/25 14:28 walnut AdvReac Intermediate gi upset Verified 03/20/25 14:28 wheat AdvReac Intermediate gi upset Verified 03/20/25 14:28 Review of Systems <Shaniqua Carter PA-C - Last Filed: 03/20/25 17:47> Constitutional Constitutional: Denies chills, Denies fatigue, Denies fever(s), Denies frequent falls, Denies lethargy and Denies weakness Eyes Eyes: Denies change in vision, Denies eye discharge, Denies irritation and Denies loss of vision ENT Ears, Nose, Mouth, and Throat: Denies change in voice, Denies dizziness, Denies neck pain, Denies sore throat and Denies throat swelling Cardiovascular Cardiovascular: Reports chest pain, Denies irregular heart rhythm, Reports lightheadedness, Denies palpitations, Denies dyspnea, Denies dyspnea on exertion and Denies orthopnea Respiratory Respiratory: Denies cough, Denies dyspnea, Denies dyspnea on exertion and Denies wheezing Gastrointestinal Gastrointestinal: Denies abdominal pain, Denies change in bowel habits, Denies diarrhea, Reports nausea and Denies vomiting Musculoskeletal Musculoskeletal: Denies neck pain and Denies numbness Integumentary/Breasts Skin/Breast: Denies pruritus, Denies erythema, Denies rash and Denies wounds Neurologic Neurologic: Denies behavioral changes, Denies confusion, Denies dizziness, Denies frequent falls, Denies loss of vision, Denies numbness and Denies weakness Psychiatric Psychiatric: Denies anxiety, Denies behavioral changes, Denies confusion, Denies depression, Denies homicidal ideation and Denies suicidal ideation Endocrine Endocrine: Denies fatigue, Denies flushing and Denies palpitations Hematologic/Lymphatic Hematologic/Lymphatic: Denies easy bruising Allergic/Immunologic Allergic/Immunologic: Denies urticaria, Denies throat swelling and Denies wheezing Patient History <Shaniqua Carter PA-C - Last Filed: 03/20/25 17:47> Social History Smoking Status: Current every day smoker Smoking Status: Current every day smoker tobacco type: vaping alcohol intake frequency: a few times a week Alcohol type: beer and wine Exam <Shaniqua Carter PA-C - Last Filed: 03/20/25 17:47> Initial Vital Signs Initial Vital Signs: Vital Signs Temperature 98.9 F 03/20/25 14:38 Pulse Rate 67 03/20/25 14:38 Respiratory Rate 20 03/20/25 14:38 Blood Pressure 130/78 03/20/25 14:38 Pulse Oximetry 99 03/20/25 14:38 Oxygen Delivery Method Room Air 03/20/25 14:38 <Ayana Sams DO - Last Filed: 03/20/25 23:39> Initial Vital Signs Initial Vital Signs: Vital Signs Temperature 98.9 F 03/20/25 14:38 Pulse Rate 67 03/20/25 14:38 Respiratory Rate 20 03/20/25 14:38 Blood Pressure 130/78 03/20/25 14:38 Pulse Oximetry 99 03/20/25 14:38 Oxygen Delivery Method Room Air 03/20/25 14:38 Course <Shaniqua Carter PA-C - Last Filed: 03/20/25 17:47> Orders Ordered: ED Orders 03/20/25 15:13 XR chest 1V Stat EKG-12 Lead Stat 03/20/25 15:27 Urinalysis and Microscopic Stat Discontinued Medications Al Hydrox/Mg Hydrox/Simethicone 30 ml/ Lidocaine HCl 15 ml 0 ml PO NOW ONE Stop: 03/20/25 15:27 Last Admin: 03/20/25 15:58 Dose: Not Given Documented By: RL Famotidine (Famotidine 20 Mg/2 Ml Vial) 40 mg IV NOW [facility] Vital Signs Vital signs: Vital Signs - 8 hr 03/20/25 17:22 03/20/25 17:49 Pulse Rate 70 Respiratory Rate 16 Blood Pressure 132/70 Pulse Oximetry 99 Oxygen Delivery Method Room Air Room Air <Ayana Sams DO - Last Filed: 03/20/25 23:39> Orders Ordered: ED Orders 03/20/25 15:13 XR chest 1V Stat EKG-12 Lead Stat 03/20/25 15:27 Urinalysis and Microscopic Stat Discontinued Medications Al Hydrox/Mg Hydrox/Simethicone 30 ml/ Lidocaine HCl 15 ml 0 ml PO NOW ONE Stop: 03/20/25 15:27 Last Admin: 03/20/25 15:58 Dose: Not Given Documented By: RL Famotidine (Famotidine 20 Mg/2 Ml Vial) 40 mg IV NOW [facility] Vital Signs Vital signs: Vital Signs - 8 hr 03/20/25 17:22 03/20/25 17:49 Pulse Rate 70 Respiratory Rate 16 Blood Pressure 132/70 Pulse Oximetry 99 Oxygen Delivery Method Room Air Room Air MDM - Chest Pain <Shaniqua Carter PA-C - Last Filed: 03/20/25 17:47> Lab Data 03/20/25 14:35 03/20/25 14:35 Labs: Lab Results 03/20/25 03/20/25 Range/Units 14:35 15:27 WBC 6.9 (4.5-11.0) X10^3/uL RBC 3.58 L (4.0-5.2) X10^6/uL Hgb 11.6 L (12.0-16.0) g/dL Hct 34.3 L (36-46) % MCV 95.8 (80-100) fL MCH 32.3 (26-34) PG MCHC 33.8 (30-36) % RDW 13.3 (11.6-14.8) % Plt Count 283 (150-400) X10^3/uL Neut % (Auto) 61.0 (50-75) % Lymph % (Auto) 26.7 (25-40) % [place] % (Auto) 10.0 (3-14) % Eos % (Auto) 1.6 L (2-4) % Baso % (Auto) 0.7 (0-2) % Neut # (Auto) 4200 (5729-8634) /uL Lymph # (Auto) 1800 (6977-5370) /uL [place] # (Auto) 700 (0-900) /uL Eos # (Auto) 100 (0-450) /uL Baso # (Auto) 0 (0-100) /uL D-Dimer < 215 (<500) ng/ml Sodium 139 (137-145) mmol/L Potassium 3.4 (3.4-5.1) mmol/L Chloride 111 H (98-107) mmol/L Carbon Dioxide 22 (22-32) mmol/L BUN 12 (7-17) mg/dL Creatinine 0.92 (0.52-1.04) mg/dL Estimated GFR > 60 (>60) mL/min BUN/Creatinine Ratio 13.0 (6-22) Glucose 100 H (70-99) mg/dL Calcium 8.3 L (8.4-10.2) mg/dL Magnesium 1.8 (1.6-2.3) mg/dL Total Bilirubin 0.3 (0.2-1.3) mg/dL AST 20 (14-36) IU/L ALT 14 (<35) IU/L Alkaline Phosphatase 36 L (38-126) U/L Troponin I < 0.012 (0.01-0.034) ng/mL NT-Pro-B Natriuret Pep 46 (<125) pg/mL Total Protein 6.7 (6.3-8.2) g/dL Albumin 4.1 (3.5-5.0) g/dL Globulin 2.6 (1.7-4.1) g/dL Albumin/Globulin Ratio 1.6 (1.0-2.8) Lipase 118 (23-300) U/L Urine Color Yellow Urine Appearance Clear Urine pH 7.5 (4.5-8.0) Ur Specific [place] 1.010 (1.000-1.035) Urine Protein Negative (Negative) Urine Glucose (UA) Negative (Negative) g/dL Urine Ketones Negative (NEGATIVE) Urine Occult Blood 1+ H (Negative) Urine Nitrate Negative (Negative) Urine Bilirubin Negative (NEGATIVE) Urine Urobilinogen 0.2 (0.2) E.U./dL Ur Leukocyte Esterase Negative (NEGATIVE) Urine RBC 0-1/hpf (0-5/HPF) Urine WBC None seen (0-5/HPF) Ur Squamous Epith Cells 0-1 /hpf (0-5/HPF) Urine Bacteria Occasional (0-1) (None) Ur Culture Indicated? Cult not indicated Vol Urine Centrifuged 10ml (spun) Point of Care Testing Test Results Negative Urine Dip Bedside Urine Glucose Negative Bedside Urine Bilirubin - Negative Bedside Urine Ketone - Negative Urine Specific [place] 1.010 Bedside Urine Occult Blood ++ Bedside Urine pH 7.5 Bedside Urine Protein - Negative Bedside Urine Urobilinogen - Negative Bedside Urine Nitrite - Negative Bedside Urine Leukocytes - Negative Esterase MDM Narrative Medical decision making narrative: 29-year-old female with no significant past medical history presents to the ED with 1 day of substernal chest pain, lightheadedness. Cardiopulmonary workup was performed. D-dimer also added to rule out DVT given patient's smoking history. Urine without UTI. Urine hCG was negative. Cardiopulmonary workup was without acute findings. EKG is normal sinus rhythm with sinus arrhythmia. No acute ST-T changes. No axis deviation. Chest x-ray without acute cardiopulmonary abnormality. Troponin and BNP within normal limits. All other labs unremarkable. During the ED stay, patient states that her chest pain has resolved. Patient still endorses some lightheadedness. Recommend good hydration, electrolyte supplementation. Patient could possibly be experiencing some symptoms of anxiety and panic from the move as well. Patient agrees to monitor her symptoms and return to the ED if worsening chest pain, shortness of breath. Return precautions discussed with patient. Patient verbalized understanding. Medical records reviewed: Yes <Ayana Sams, - Last Filed: 03/20/25 23:39> Lab Data Labs: Lab Results 03/20/25 03/20/25 Range/Units 14:35 15:27 WBC 6.9 (4.5-11.0) X10^3/uL RBC 3.58 L (4.0-5.2) X10^6/uL Hgb 11.6 L (12.0-16.0) g/dL Hct 34.3 L (36-46) % MCV 95.8 (80-100) fL MCH 32.3 (26-34) PG MCHC 33.8 (30-36) % RDW 13.3 (11.6-14.8) % Plt Count 283 (150-400) X10^3/uL Neut % (Auto) 61.0 (50-75) % Lymph % (Auto) 26.7 (25-40) % [place] % (Auto) 10.0 (3-14) % Eos % (Auto) 1.6 L (2-4) % Baso % (Auto) 0.7 (0-2) % Neut # (Auto) 4200 (0240-9033) /uL Lymph # (Auto) 1800 (7931-6224) /uL [place] # (Auto) 700 (0-900) /uL Eos # (Auto) 100 (0-450) /uL Baso # (Auto) 0 (0-100) /uL D-Dimer < 215 (<500) ng/ml Sodium 139 (137-145) mmol/L Potassium 3.4 (3.4-5.1) mmol/L Chloride 111 H (98-107) mmol/L Carbon Dioxide 22 (22-32) mmol/L BUN 12 (7-17) mg/dL Creatinine 0.92 (0.52-1.04) mg/dL Estimated GFR > 60 (>60) mL/min BUN/Creatinine Ratio 13.0 (6-22) Glucose 100 H (70-99) mg/dL Calcium 8.3 L (8.4-10.2) mg/dL Magnesium 1.8 (1.6-2.3) mg/dL Total Bilirubin 0.3 (0.2-1.3) mg/dL AST 20 (14-36) IU/L ALT 14 (<35) IU/L Alkaline Phosphatase 36 L (38-126) U/L Troponin I < 0.012 (0.01-0.034) ng/mL NT-Pro-B Natriuret Pep 46 (<125) pg/mL Total Protein 6.7 (6.3-8.2) g/dL Albumin 4.1 (3.5-5.0) g/dL Globulin 2.6 (1.7-4.1) g/dL Albumin/Globulin Ratio 1.6 (1.0-2.8) Lipase 118 (23-300) U/L Urine Color Yellow Urine Appearance Clear Urine pH 7.5 (4.5-8.0) Ur Specific [place] 1.010 (1.000-1.035) Urine Protein Negative (Negative) Urine Glucose (UA) Negative (Negative) g/dL Urine Ketones Negative (NEGATIVE) Urine Occult Blood 1+ H (Negative) Urine Nitrate Negative (Negative) Urine Bilirubin Negative (NEGATIVE) Urine Urobilinogen 0.2 (0.2) E.U./dL Ur Leukocyte Esterase Negative (NEGATIVE) Urine RBC 0-1/hpf (0-5/HPF) Urine WBC None seen (0-5/HPF) Ur Squamous Epith Cells 0-1 /hpf (0-5/HPF) Urine Bacteria Occasional (0-1) (None) Ur Culture Indicated? Cult not indicated Vol Urine Centrifuged 10ml (spun) Point of Care Testing Test Results Negative Urine Dip Bedside Urine Glucose Negative Bedside Urine Bilirubin - Negative Bedside Urine Ketone - Negative Urine Specific [place] 1.010 Bedside Urine Occult Blood ++ Bedside Urine pH 7.5 Bedside Urine Protein - Negative Bedside Urine Urobilinogen - Negative Bedside Urine Nitrite - Negative Bedside Urine Leukocytes - Negative Esterase Discharge Plan Departure Patient Disposition: Home Clinical Impression: Chest pain Qualifiers: Chest pain type: unspecified Qualified Code(s): R07.9 - Chest pain, unspecified Instructions: DI for Atypical Chest Pain Activity Restrictions/Additional Instructions: You were evaluated in the ED today for chest pain and lightheadedness. Your workup was normal today. Please continue good hydration and supplement electrolytes. It is possible that your symptoms might be related to the stress you were feeling from the upcoming move. Please continue to monitor your symptoms and return to the ED if you have worsening symptoms. Prescriptions: No Action prednisone 20 mg tablet 40 mg PO DAILY Qty: 6 0RF Stand Alone Forms: Patient Portal/API ED Sign-out <Ayana Sams DO - Last Filed: 03/20/25 23:39> Cosign ED Attending Kalani Attestation: I was immediately available in the department for consultation.
== END 2025-03-20 17:49 | disposition home or self-care (01) ==
PROVIDERS: Emergency Provider Student in an Organized Health Care Education/Training Program
DX: R07.9 Chest pain, unspecified (principal); R42 Dizziness and giddiness
CPT/HCPCS: 71045; 80053; 81001; 81003; 81025; 83690; 83735; 83880; 84484; 85025; 85379; 93005; 99282; 99284